=== PATIENT | female | born 1990 | race Caucasian/White ===

== ENCOUNTER 2020-03-31 14:30 | Outpatient (CLI) | payer OTHER ==
--- NOTE | 2020-03-31 15:09 | SLEEP CARE CONSULTATION ---
Information from patient questionnaire entered by Renetta Kam. I have reviewed and concur with the information entered by Renetta Kam. This document represents the service I personally performed and the decisions made by me, Lisa Vasquez MD, [facility]. History of Present Illness Service Date and Time: 03/31/2020 1430 Reason for Visit: New patient Chief Complaint: reports: Other (Restless leg syndrome) Duration of Symptoms: 10 years Usual bedtime: 11pm - 12 am Time it takes to fall asleep: 5 mins Snores at night: No Observed to quit breathing while asleep: No Sleeps alone due to snoring: No Number of times waking at night: 1-4 Reasons for waking at night: reports: Bathroom, Other (dogs shifting, RLS, or carpel tunnel discomfort) Toss, Turn, or Twitch while sleeping: Yes (sometimes) Recalls having dreams: Yes (sometimes) Usually gets out of bed at: 7:30 - 8:30 am Feels refreshed in the morning: No Morning headache: No Sleepy or fatigued during the day: Yes (it varies/sometimes) Ever fallen asleep while driving: No Takes day naps: Yes (very occasionally) Prior sleep studies: No Additional HPI information: I had the pleasure of seeing Ms. Collins today regarding the possibility of her having a sleep disorder. As you know, she is a 29 year old lady who complains of restless leg syndrome. She describes creepy crawly sensation in her legs and occasionally in her arms making her want to move. This happens throughout the day and night. When it first started 10 years ago, she took some iron and it helped. She had her iron level checked and it was normal. She just learned that she is and was told to cut down on the iron intake. At night, it is difficult to fall asleep. She also wakes up frequently during the night. Her does not notice her legs kicking. She does not snore. 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 Patient is and lives in [place]. Have you smoked in the past 12 months: No Alcohol use: Yes Alcohol amount and frequency: 1 a week Caffeine use: Yes Caffeine amount and frequency: 1-2 a day Family History Family history of sleep disordered breathing: Yes Allergies and Home Medications Drug allergies reviewed: Yes Home medication list reviewed: Yes Review of Systems Cardiovascular: denies: high blood pressure, palpitations, chest pain, irregular heart rate or pulse, leg or foot swelling, have to sleep sitting up, other Respiratory: denies: shortness of breath, wheeze, sputum production, chronic cough, other Gastrointestinal: reports: heartburn (occasionally), abdominal pain (menstral) Urinary: denies: incontinence, frequency, urgency, impotence, other Neurological: denies: headaches, seizure, head trauma, disorientation, speech dysfunction, gait or balance problems, fainting or unconsciousness, other Psychiatric: denies: Attention Deficit Hyperactivity, anxiety, depression, mood disorder, claustrophobia, other Ear/Nose/Throat: reports: nasal congestion (occasionally), nose bleeds (rare) Endocrine: reports: too hot or cold (cold) Musculoskeletal: reports: neck pain, back pain, muscle pain or cramping Immunologic: reports: sneezing, rash, allergies to food or environment Physical Exam Vital signs obtained and entered by: Detailed physical exam is deferred because the Coronavirus epidemic. Height: 5 ft 4 in Weight: 142 lb Body Mass Index: 24.3 BMI Classification: Healthy weight Impression and Plan IMPRESSION: 1. Restless leg syndrome. The cause of restless leg syndrome is typically unknown. Few known causes are iron deficiency, renal failure, and selective serotonin reuptake inhibitors. will most likely make the condition worse. Primary treatment usually involves using a dopamine agonist such as pramipexole. Although, any pharmcotherapy should wait until after her . First, I would like to or a sleep study to see if she has periodic leg movement of sleep which will help to confirm the diagnosis. Plan: 1. Schedule an in-laboratory polysomnography. 2. Return in 1 to 2 weeks after the study to discuss results and initiate therapy. Visit Type: In Office Provider Statement: I spent 100% of the Face to Face Visit with the patient with greater than 50% spent counseling the patient and coordination of care.
== END 2020-03-31 14:31 | disposition home or self-care (01) ==
LOC: SC 14:30
PROVIDERS: ATTEND Internal Medicine Pulmonary Disease
DX: O99.350 Diseases of the nervous system complicating pregnancy, unspecified trimester (principal); G25.81 Restless legs syndrome; G47.8 Other sleep disorders; R44.8 Other symptoms and signs involving general sensations and perceptions
CPT/HCPCS: 99203; 99212